=== PATIENT | male | born 1985 | race Caucasian/White ===

== ENCOUNTER 2018-04-04 23:59 | Emergency (ER) | payer SELFPAY ==
[2018-04-05] MEDS ORDERED: TETRACAINE HCL 0.5% 2ML OPTH ONE (00:06)
[2018-04-05] MEDS ORDERED: FLUORESCEIN SODIUM 0.6 MG/WRAP ONE (00:06)
[2018-04-05] MEDS ORDERED: GENTAMICIN 0.3% OPTH DROP 5ML ONE (00:28)
[2018-04-05] MEDS ORDERED: HYDROCODONE/APAP 5/325 MG TAB ONE (00:28)
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
== END 2018-04-05 00:42 | disposition home or self-care (01) ==
LOC: ER 23:59
DX: S05.01XA Injury of conjunctiva and corneal abrasion without foreign body, right eye, initial encounter (principal); W50.0XXA Accidental hit or strike by another person, initial encounter; Y93.89 Activity, other specified; Y92.009 Unspecified place in unspecified non-institutional (private) residence as the place of occurrence of the external cause
CPT/HCPCS: 99283